=== PATIENT | female | born 1930 | race Caucasian/White ===

== ENCOUNTER 2017-11-07 18:54 | Emergency (ER) | payer MEDICARE, OTHER ==
[~2017-11-07] VITALS: Ht 160 cm; Wt 70.8 kg
[2017-11-07 20:12] VITALS: Ht 160 cm; Wt 70.8 kg
[2017-11-07 21:53] LABS: BASOPHIL % 0.6 % (0-2); PLATELET COUNT 209 x10^3mcL (130-400)
[2017-11-07 21:59] LABS: CALCIUM 9.1 mg/dL (8.5-10.1); CARBON DIOXIDE 27.4 mmol/L (21-32); CHLORIDE SERUM 103 mmol/L (98-107); CREATININE SERUM 0.8 mg/dL (0.6-1.0); GLUCOSE SERUM 150 mg/dL (74-106); POTASSIUM SERUM 4.7 mmol/L (3.5-5.1); SODIUM SERUM 138 mmol/L (136-145)
[2017-11-07 22:01] LABS: ALBUMIN 3.6 g/dL (3.4-5.0); ALKALINE PHOSPHATASE 79 U/L (46-116); ALT/SGPT 19 U/L (14-59); AST/SGOT 19 U/L (15-37); BILIRUBIN TOTAL 0.28 mg/dL (0.20-1.00); TOTAL PROTEIN, SERUM 7.2 g/dL (6.4-8.2)
[2017-11-07 22:39] LABS: microscopic required? NO
[2017-11-07 22:55] LABS: urine erythrocyte NEGATIVE (NEGATIVE)
[2017-11-08 01:02] VITALS: BP 173/68
== END 2017-11-08 01:02 | disposition home or self-care (01) ==
LOC: ED 18:54
PROVIDERS: Emergency Medicine
DX: T78.3XXA Angioneurotic edema, initial encounter (principal); I10 Essential (primary) hypertension; E11.9 Type 2 diabetes mellitus without complications; E78.00 Pure hypercholesterolemia, unspecified
CPT/HCPCS: 36415; 82962; J1200; J7512

== ENCOUNTER 2020-10-03 10:55 | Emergency (ER) | payer MEDICARE, OTHER ==
[~2020-10-03] VITALS: Ht 157.5 cm; Wt 66.7 kg
[2020-10-03 11:10] VITALS: Ht 157.5 cm; Wt 66.7 kg
[2020-10-03 13:16] LABS: BASOPHIL % 1.9 % (0-2); CHLORIDE SERUM 98 mmol/L (98-107); CREATININE SERUM 1.6 mg/dL (0.6-1.0); GLUCOSE SERUM 228 mg/dL (74-106); PLATELET COUNT 116 x10^3mcL (130-400); POTASSIUM SERUM 4.3 mmol/L (3.5-5.1); RED CELL DISTRIBUTION WIDTH 12.6 % (11.5-14.5); SODIUM SERUM 131 mmol/L (136-145)
[2020-10-03 13:17] LABS: microscopic required? NO
[2020-10-03 13:21] LABS: ALKALINE PHOSPHATASE 189 U/L (46-116); ALT/SGPT 47 U/L (14-59); AST/SGOT 19 U/L (15-37); BILIRUBIN TOTAL 0.4 mg/dL (0.20-1.00); CHOLESTEROL 160 mg/dL (<200); HDL CHOLESTEROL 35 mg/dL (40-60); LIPASE 207 IU/L (73-393); MAGNESIUM 1.6 mg/dL (1.8-2.4); TOTAL PROTEIN, SERUM 6.4 g/dL (6.4-8.2)
[2020-10-03 13:23] LABS: ALBUMIN 2.9 g/dL (3.4-5.0)
[2020-10-03 13:26] LABS: UA SPECIFIC GRAVITY 1.025 (1.005-1.035); urine erythrocyte NEGATIVE (NEGATIVE)
[2020-10-03 15:35] VITALS: BP 138/76
== END 2020-10-03 15:36 | disposition home or self-care (01) ==
LOC: ED 10:55 → EDBD 10:55 → ED 15:36
PROVIDERS: Emergency Medicine
DX: E11.65 Type 2 diabetes mellitus with hyperglycemia (principal); L98.9 Disorder of the skin and subcutaneous tissue, unspecified; I10 Essential (primary) hypertension; E78.00 Pure hypercholesterolemia, unspecified; F17.210 Nicotine dependence, cigarettes, uncomplicated; Z20.828 Contact with and (suspected) exposure to other viral communicable diseases
CPT/HCPCS: 36600; 82962; 99406; J1815